=== PATIENT | male | born 1940 | race Asian ===

== ENCOUNTER 2018-07-22 08:12 | Emergency (ER) | payer MEDICARE, MEDICAID ==
[~2018-07-22] VITALS: Ht 157.5 cm; Wt 53.7 kg
[2018-07-22 08:17] VITALS: BP 154/44
[2018-07-22] MEDS ORDERED: SULF1TAB49 PO (08:34)
== END 2018-07-22 09:05 | disposition home or self-care (01) ==
LOC: ER 08:13
DX: L72.8 Other follicular cysts of the skin and subcutaneous tissue (principal); L08.9 Local infection of the skin and subcutaneous tissue, unspecified; Z98.890 Other specified postprocedural states
CPT/HCPCS: 99284